=== PATIENT | male | born 1980 | race Caucasian/White ===

== ENCOUNTER 2016-12-02 20:03 | Emergency (ER) | payer OTHER ==
[2016-12-02] MEDS ORDERED: KETOROLAC TROMETHAMINE 30 MG/ML 1 ML VIAL ONE (21:03)
[2016-12-02] MEDS ORDERED: HYDROMORPHONE HCL 1 MG/ML SYRINGE ONE ×2 (21:03→21:49)
[2016-12-02] MEDS ORDERED: ONDANSETRON 4 MG/2ML 2 ML VIAL ONE (21:03)
[2016-12-02 21:08] LABS: ABSOLUTE NEUTROPHIL COUNT 8.7 K/mm3 (1.8-7.7); BASO # 0.1 K/mm3 (0.0-0.2); BASO % 0.6 % (0.2-1.0); EOS # 0.1 (0.0-0.5); EOS % 0.6 % (0.9-2.9); HEMATOCRIT 43.1 % (32.0-52.0); HEMOGLOBIN 14.9 gm/l (14.0-18.0); IMM NEUT% 0.2 % (0-1); LYMPH # 1.5 (1.0-4.8); LYMPH % 14.1 % (15-45); MEAN CELL VOLUME 87.6 fl (80.0-94.0); MEAN CORPUSCULAR HEMOGLOBIN 30.3 pg (27.0-31.0); MEAN CORPUSCULAR HGB CONC 34.6 g/dl (33.0-37.0); MEAN PLATELET VOLUME 8.9 fl (7.4-10.4); MONO # 0.5 (0.0-0.8); MONO % 4.8 % (4-12); NEUT % 79.7 % (43-75); PLATELET COUNT 272 K/mm3 (130-400); RED CELL DISTRIBUTION WIDTH 12.1 % (11.5-14.5)
[2016-12-02 21:17] LABS: ALB/GLOB RATIO 1.4 (>1.0); ALBUMIN 4.3 gm/dL (3.5-5.7); CALCIUM 10.6 mg/dL (8.6-10.3)
--- NOTE | 2016-12-02 21:41 | CT ---
Name: TYRON GIRALDO Exam: Noncontrast renal stone CT Comparison: None Clinical History: Low back and groin pain with vomiting Procedure: Helical CT using multidetector technique was applied to the abdomen and pelvis without contrast. Sagittal, axial and coronal reconstructions were obtained. An automated dose reduction technique was used to minimize patient radiation dose. Findings: CT abdomen (noncontrast): Lung bases are clear. Heart is nonenlarged. Noncontrast of the liver, gallbladder, pancreas, spleen, adrenal glands, right kidney, aorta, IVC and portal vein are normal. Stomach, small bowel and colon are normal. Mild to moderate left hydronephrosis and left ureterectasis is present. There is mild left perinephric and periureteral stranding. A small fat filled umbilical hernia is present. Regional skeleton is unremarkable. There is no free air, free fluid or suspicious adenopathy. CT pelvis (noncontrast): The bladder is empty. Prostate and seminal vesicles are normal. In the distal left ureter, just above the ureterovesical junction, there is a 6 x 4 mm calculus and the ureter above this stone is mildly dilated. Right ureter is normal. There are few sigmoid colon diverticuli. Small bowel and appendix are normal. There is no free air, free fluid or suspicious adenopathy. Impression: 1. 6 x 4 mm calculus in the distal left ureter just above the ureterovesical junction causing mild to moderate hydronephrosis and ureterectasis. 2. Normal appendix Note: The above report was uploaded to [facility]'s electronic medical records system at 2137 hours.
[2016-12-02 21:51] LABS: SPECIFIC GRAVITY 1.015 (1.001-1.030); URINE BILIRUBIN NEGATIVE (NEGATIVE); URINE BLOOD 3+ (NEGATIVE); URINE GLUCOSE (UA) NEGATIVE (NEGATIVE); URINE LEUKOCYTE ESTERASE NEGATIVE (NEGATIVE); URINE NITRITE NEGATIVE (NEGATIVE); URINE PROTEIN TRACE (NEGATIVE); URINE UROBILINOGEN NORMAL (0-1 mg/dl)
[2016-12-02 21:59] LABS: URINE APPEARANCE CLEAR; URINE COLOR YELLOW
[2016-12-02] MEDS ORDERED: TAMSULOSIN HCL 0.4 MG CAPSULE.DR ONE (22:22)
[2016-12-02] MEDS ORDERED: SODIUM CHLORIDE 0.9% 1,000 ML ONE (22:36)
[2016-12-02 22:43] LABS: URINE BACTERIA 0; URINE RBC 30-40 /hpf
[2016-12-03] MEDS ORDERED: ONDANSETRON 4 MG ODT TAB ONE (00:26)
[2016-12-03] MEDS ORDERED: OXYCODONE/ACETAMINOPHEN 5/325 MG TABLET ONE (00:26)
== END 2016-12-03 01:00 | disposition home or self-care (01) ==
LOC: ED 20:03
DX: N20.0 Calculus of kidney (principal); Z87.891 Personal history of nicotine dependence; Z88.5 Allergy status to narcotic agent
CPT/HCPCS: 85025; 80053; 81001; 74176; 96375 ×2; 96376; 99284 ×2; 96374; 96361; J1170 ×2; A9270 ×2; J1885; J2405; J7030